=== PATIENT | female | born 1940 | race Two or more races ===

== ENCOUNTER 2021-04-16 08:08 | Outpatient (RCR) | payer MEDICARE, OTHER, SELFPAY ==
[2021-04-16 10:20] LABS: MANUAL DIFF FLAG NO
[2021-04-16 10:40] LABS: Eosinophils Absolute Auto 0.2 X10*3/uL (0.0-0.4); Hematocrit 38.3 % (37.0-47.0); Hemoglobin 12.1 g/dl (12.0-16.0); Imm Gran Abs Auto 0.03 X10*3/uL (0.00-0.03); Imm Gran Pct Auto 0.3 % (0.0-0.4); Lymphocytes Percent Auto 22.8 % (20-40); Mean Corpuscular HGB Conc 31.6 g/dl (31.0-35.0); Mean Corpuscular Hemoglobin 28.1 pg (27.0-33.0); Mean Corpuscular Volume 88.9 fL (80.0-98.0); Mean Platelet Volume 9.7 fL (9.4-12.3); Monocytes Absolute Auto 0.6 X10*3/uL (0.1-1.2); Monocytes Percent Auto 7.2 % (2-11); Neutrophils Absolute Auto 5.8 x10*3/uL (2.0-8.3); Neutrophils Percent Auto 67.7 % (45-73); Platelet Count 214 X10*3/uL (160-400); Red Blood Count 4.31 X10*6/uL (4.20-5.50); Red Cell Distribution Width 15.9 % (11.0-16.0); White Blood Count 8.6 X10*3/uL (4.8-10.8)
[2021-04-16 11:02] LABS: Anion Gap 11 (12-20); Blood Urea Nitrogen 28 mg/dL (9-16); C Reactive Protein 0.77 mg/dL (< or = 0.50); Calcium 9.6 mg/dL (8.4-10.2); Carbon Dioxide 28 mmol/L (22-29); Chloride 107 mmol/L (96-108); Estimated Glomerular Filt Rate 46; Glucose Random 124 mg/dL (60-115); Potassium 4.8 mmol/L (3.3-5.1); Sodium 141 mmol/L (135-145)
[2021-04-16 11:04] LABS: Estimated Average Glucose 137 mg/dL; Hemoglobin A1C 150.7553 umol/L; Hemoglobin A1c % 6.4 %
[2021-04-16 11:35] LABS: Erythrocyte Sedimentation Rate 40 MM/HR (0-20)
== END 2021-06-26 14:25 | disposition home or self-care (01) ==
LOC: HO.WCC 08:08
PROVIDERS: PCP Internal Medicine; Visit Provider Physician Assistant
DX: E11.622 Type 2 diabetes mellitus with other skin ulcer (principal); I87.312 Chronic venous hypertension (idiopathic) with ulcer of left lower extremity; E11.51 Type 2 diabetes mellitus with diabetic peripheral angiopathy without gangrene; L97.322 Non-pressure chronic ulcer of left ankle with fat layer exposed; E44.1 Mild protein-calorie malnutrition; C54.1 Malignant neoplasm of endometrium; I69.398 Other sequelae of cerebral infarction; I25.10 Atherosclerotic heart disease of native coronary artery without angina pectoris; Z85.3 Personal history of malignant neoplasm of breast; Z95.1 Presence of aortocoronary bypass graft; Z92.3 Personal history of irradiation
CPT/HCPCS: 11042; 15271; 36415; 80048; 83036; 84134; 85025; 85652; 86140; 99212; Q4101

== ENCOUNTER 2021-06-12 11:06 | Outpatient (REF) | payer OTHER, SELFPAY ==
--- NOTE | ~2021-06-12 | US_ITS ---
EXAMINATION: Noninvasive assessment of the arteries of both lower extremities to include a PVR exam limited (1-2 levels) and HELEN, bilateral. ? Mitzi Bertrand M.D., Ph.D. CLINICAL INFORMATION: Nonhealing wound left ankle COMPARISON: None TECHNIQUE: The ankle/brachial indices of the distal posterior tibial and the dorsalis pedis arteries were obtained of the lower extremity arterial system bilaterally; along with pressures and pulse volume recordings at the ankle and duplex Doppler techniques of the common femoral, proximal femoral and proximal profunda arteries. The study was performed at rest. ? FINDINGS AT REST:? RIGHT LE. THE RIGHT ANKLE-BRACHIAL INDEX IS: 0.96 (higher of the DP/PT) >0.97-1.25 = normal - no significant arterial disease 0.75-0.96 = mild peripheral arterial disease 0.50-0.74 = moderate peripheral arterial disease <0.50 = severe peripheral arterial disease <0.30 = critical arterial disease 2. SEGMENTAL PRESSURES: Ankle: PT 160 DP 120 3. PVR WAVEFORMS: Ankle: Normal 4. DIRECT DUPLEX: Not performed LEFT LE. THE LEFT ANKLE-BRACHIAL INDEX IS: 0.83 (higher of the DP/PT) >0.97-1.25 = normal - no significant arterial disease 0.75-0.96 = mild peripheral arterial disease 0.50-0.74 = moderate peripheral arterial disease <0.50 = severe peripheral arterial disease <0.30 = critical arterial disease 2. SEGMENTAL PRESSURES: Ankle: PT 198 DP 138 3. PVR WAVEFORMS: Ankle: Normal 4. DIRECT DUPLEX: Common femoral artery: 130 cm/sec; multiphasic waveform Profunda artery: 105 cm/sec; triphasic waveform Superficial femoral artery proximal: 235 cm/sec; monophasic waveform Superficial femoral artery mid portion: 19.4 cm/sec; monophasic waveform Superficial femoral artery distal: 232 cm/sec; monophasic waveform Popliteal artery: 316 cm/sec; monophasic waveform Posterior tibial artery: 44.0 cm/sec; monophasic waveform Peroneal artery: 52.6 cm/sec; monophasic waveform US/US arterial duplex LE LT IMPRESSION: Although the left ankle-brachial index indicates only mild peripheral arterial disease, this is likely underestimated due to the atherosclerotic disease of the arteries making pressure measurements and running as. 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 The arteries do maintain patency but have monophasic waveforms, indicating hemodynamic significance.
== END 2021-06-12 11:07 | disposition home or self-care (01) ==
LOC: HO.US 11:06
PROVIDERS: PCP Internal Medicine; Visit Provider Physician Assistant
DX: I73.9 Peripheral vascular disease, unspecified (principal)
CPT/HCPCS: 93923; 93926